=== PATIENT | male | born 2000 | race Two or more races ===

== ENCOUNTER 2023-10-15 01:06 | Emergency (ER) | payer OTHER ==
[~2023-10-15] VITALS: Ht 185.4 cm; Wt 104.5 kg
[2023-10-15 01:10] VITALS: TEMP 97.8
[2023-10-15] MEDS ORDERED: IBUP-1554 PO (01:43)
[2023-10-15] MEDS ORDERED: ACET-2080 PO (01:43)
[2023-10-15] MEDS: IBUPROFEN 600 MG TABLET PO ONE (01:46)
[2023-10-15] MEDS: ACETAMINOPHEN/CODEINE 300-30 MG TABLET PO ONE (01:46)
[2023-10-15 02:16] VITALS: BP 143/91; PULSE 95; RESP 16
== END 2023-10-15 02:20 | disposition home or self-care (01) ==
LOC: EMS 01:10
DX: T22.211A Burn of second degree of right forearm, initial encounter (principal); F12.90 Cannabis use, unspecified, uncomplicated; Z98.890 Other specified postprocedural states; T31.0 Burns involving less than 10% of body surface
CPT/HCPCS: 99283